=== PATIENT | male | born 1980 | race Caucasian/White ===

== ENCOUNTER → 2019-11-10 | Outpatient (CLI) | payer OTHER ==
--- NOTE | 2019-11-10 16:56 | Diagnostic Imaging Report ---
TECHNIQUE: Magnetic resonance imaging of the LEFT SHOULDER was performed WITHOUT injected contrast. COMPARISON: None available. HISTORY: Strain of the left shoulder FINDINGS: MUSCLES AND TENDONS: Rotator Cuff: Tendons: Supraspinatus: Intact with mild tendinosis. No discrete tear. Infraspinatus: Intact. Teres Minor: Intact Subscapularis: Mild tendinosis with low-grade interstitial tearing along the superior fibers. Muscles: No focal muscle atrophy. Biceps Tendon: The long head of the biceps tendon is intact and within the intertubercular groove. GLENOHUMERAL JOINT: Glenoid Labrum: Degenerative fraying of the posterior superior labrum without discrete displaced tear. Articular Cartilage: No focal defect. AC JOINT AND ACROMION: Complete tear of the acromioclavicular ligaments with widening of the AC joint measuring up to 1.3 cm. Associated laxity and thinning of the coracoclavicular ligaments. Findings may be subacute to chronic given minimal surrounding soft tissue and bone marrow edema. Small amount of fluid in the subacromial/subdeltoid bursa. BONE: No acute fractures. Mild bone marrow edema at the distal clavicle with small subchondral cystic changes. Additional subtle subchondral cystic changes along the posterior aspect of the greater tuberosity. SOFT TISSUES: Otherwise, the soft tissues appear unremarkable. IMPRESSION: 1. Complete tear of the acromioclavicular ligaments with widening of the AC joint. Associated partial versus complete tear of the coracoclavicular ligaments. Findings may be subacute to chronic given minimal surrounding soft tissue and bone marrow edema. 2. Mild tendinosis and low-grade interstitial tearing of the subscapularis tendon. Additional mild supraspinatus tendinosis without tear. 3. Degenerative fraying along the posterior superior labrum without discrete tear. 4. Small amount of fluid within the subacromial/subdeltoid bursa, may be reactive from AC joint injury. Signed by: Bryan Tran MD on 11/10/2019 4:53 PM
== END ==
LOC: MRI 13:34
PROVIDERS: ATTEND Family Medicine
DX: S46.912A Strain of unspecified muscle, fascia and tendon at shoulder and upper arm level, left arm, initial encounter (principal)